=== PATIENT | male | born 1985 | race Caucasian/White ===

== ENCOUNTER 2016-10-21 21:15 | Emergency (ER) | payer SELFPAY ==
[2016-10-21 21:18] VITALS: BP 152/77; PULSE 93; RESP 16; TEMP 97.8; O2SAT 96
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
[2016-10-21] MEDS ORDERED: DICL75TA PO (23:18)
[2016-10-21] MEDS ORDERED: HYDR-3533 PO (23:18)
[2016-10-21] MEDS ORDERED: ACETAMINOPHEN/HYDROcodone 325 MG/5 MG TAB PO ONE (23:30)
== END 2016-10-22 00:10 | disposition home or self-care (01) ==
LOC: NEPD 21:15
DX: S92.511A Displaced fracture of proximal phalanx of right lesser toe(s), initial encounter for closed fracture (principal); S90.31XA Contusion of right foot, initial encounter; V27.4XXA Motorcycle driver injured in collision with fixed or stationary object in traffic accident, initial encounter
CPT/HCPCS: 73630; 99284; L3260

== ENCOUNTER 2017-03-19 11:03 | Emergency (ER) | payer SELFPAY ==
[~2017-03-19] VITALS: Ht 172.7 cm; Wt 91.0 kg
[~2017-03-19 11:03] MED LIST: DICL75TA PO; HYDR-3533 PO
[2017-03-19 11:04] VITALS: BP 156/87; PULSE 115; RESP 20; TEMP 99; O2SAT 98
[2017-03-19] MEDS ORDERED: ONDANSETRON HCL 4 MG/2 ML VIAL IV PUSH ONE (13:00)
[2017-03-19] MEDS ORDERED: MORPHINE SULFATE 2 MG/ML INJ IV PUSH ONE ×2 (13:00→14:15)
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
--- NOTE | 2017-03-19 14:59 | RADRPT ---
EXAM DATE/TIME: 03/19/2017 14:25 [facility] COMPARISON: ANKLE LEFT COMPLETE ([id number]), March 19, 2017, 13:25. INDICATIONS : Fell off a wall now having bilateral ankle pain, pain when patient tries to walk RADIATION DOSE: 16.72 CTDIvol (mGy) ; Combined studies MEDICAL HISTORY : None SURGICAL HISTORY : None. ENCOUNTER: Initial ACUITY: 1 day PAIN SCALE: 8/10 LOCATION: Right foot TECHNIQUE: Volumetric scanning of the foot was performed. Using automated exposure control and adjustment of th e mA and/or kV according to patient size, radiation dose was kept as low as reasonably achievable to obtain optimal diagnostic quality images. DICOM format image data is available electronically for re view and comparison. FINDINGS: BONES: There is a mildly comminuted fracture deformity involving the inferior lateral calcaneus several frac ture lines. There is minimal distraction of 1-3 mm. There is overlying soft tissue swelling. This ext ends into talar calcaneal joint. JOINTS: No evidence of joint narrowing or effusion. SOFT TISSUES: Muscles, tendons, and neurovascular structures are grossly unremarkable. No evidence of mass, organiz ed fluid collection, or foreign body. CONCLUSION: Mildly comminuted fracture deformity of the inferior lateral calcaneus. Marcial Govea MD on March 19, 2017 at 14:53 Board Certified Radiologist. This report was verified electronically.
--- NOTE | 2017-03-19 15:12 | RADRPT ---
EXAM DATE/TIME: 03/19/2017 14:27 [facility] COMPARISON: CT FOOT RIGHT W/O CONTRAST, March 19, 2017, 14:25. ANKLE LEFT COMPLETE ([id number]), March 19, 2017 , 13:25. INDICATIONS : Fell off a wall,now having bilateral ankle pain, trouble walking. Abnormal plain film exam. RADIATION DOSE: 16.72 CTDIvol (mGy) ; Combined studies MEDICAL HISTORY : None SURGICAL HISTORY : None. ENCOUNTER: Initial ACUITY: 1 day PAIN SCALE: 8/10 LOCATION: Left Foot TECHNIQUE: Volumetric scanning of the foot was performed. Using automated exposure control and adjustment of th e mA and/or kV according to patient size, radiation dose was kept as low as reasonably achievable to obtain optimal diagnostic quality images. DICOM format image data is available electronically for re view and comparison. FINDINGS: There is a comminuted fracture deformity involving the sustentaculum talus with multiple fractur e lines involving the inferior lateral talus. There is mild distraction of the fracture lines measuri ng up to 1-2 mm. This extends into the talar calcaneal joint. There is no significant angulation. The distal tibia and fibula are intact. There is questionable mild fracture deformity involving the ante rior lateral calcaneus. There is diffuse soft tissue swelling. CONCLUSION: 1. Mildly comminuted fracture deformity involving the sustentaculum fernanda. 2. Questionable subtle fracture involving the superior lateral calcaneus. Marcial Govea MD on March 19, 2017 at 15:04 Board Certified Radiologist. This report was verified electronically.
[2017-03-19 15:31] LABS: AUTOMATED NEUTROPHIL # 9.2 TH/MM3 (1.8-7.7); BASOPHIL % 0.4 % (0.0-2.0); EOSINOPHIL % 0.4 % (0.0-4.0); HEMATOCRIT 46.2 % (39.0-51.0); LYMPH % 15.9 % (9.0-44.0); MEAN CELL VOLUME 94.7 FL (80.0-100.0); MEAN CORPUSCULAR HEMOGLOBIN 32.9 PG (27.0-34.0); MEAN CORPUSCULAR HGB CONC 34.8 % (32.0-36.0); MEAN PLATELET VOLUME 9.5 FL (7.0-11.0); MONOCYTE # 1.1 TH/MM3 (0-0.9); NEUT % 74.3 % (16.0-70.0); PLATELET COUNT 215 TH/MM3 (150-450); RED BLOOD COUNT 4.87 MIL/MM3 (4.50-5.90); RED CELL DISTRIBUTION WIDTH 12.3 % (11.6-17.2); WHITE BLOOD COUNT 12.4 TH/MM3 (4.0-11.0)
[2017-03-19 15:39] LABS: BILIRUBIN, URINE NEG (NEG); BLOOD, URINE NEG (NEG); GLUCOSE,URINE NEG (NEG); KETONE, URINE NEG (NEG); NITRITE,URINE NEG (NEG); URINE COLOR YELLOW (YELLW/STRAW); URINE LEUKOCYTE ESTERASE NEG (NEG)
[2017-03-19 15:42] LABS: BICARBONATE 26.8 MEQ/L (21.0-32.0); CALCIUM 8.9 MG/DL (8.5-10.1); CREATININE 0.89 MG/DL (0.60-1.30)
[2017-03-19] MEDS ORDERED: PERC5TAB12 PO (16:15)
[2017-03-19] MEDS ORDERED: WHEEMIS3 (16:18)
[2017-03-19] MEDS ORDERED: HYDROmorphone HCL PF 2 MG/ML VIAL IV PUSH ONE (16:30)
== END 2017-03-19 19:54 | disposition home or self-care (01) ==
LOC: NEPD 11:03
DX: S92.001A Unspecified fracture of right calcaneus, initial encounter for closed fracture (principal); S92.102A Unspecified fracture of left talus, initial encounter for closed fracture; F17.210 Nicotine dependence, cigarettes, uncomplicated; W17.89XA Other fall from one level to another, initial encounter
CPT/HCPCS: 73610; 73700; 80048; 81001; 85025; 85610; 85730; 96374; 96375; 96376; 99285; J1170; J2270; J2405

== ENCOUNTER 2017-03-24 17:24 | Inpatient (IN) | payer SELFPAY ==
[~2017-03-24] VITALS: Ht 175.3 cm; Wt 95.5 kg
[~2017-03-24 17:24] MED LIST changes: +PERC5TAB12 PO; +WHEEMIS3
[2017-03-24 17:28] VITALS: BP 128/98; PULSE 110; RESP 20; TEMP 97.9; O2SAT 98
--- NOTE | 2017-03-24 19:02 | PD ---
HPI Chief Complaint: Injury Time Seen by Provider: 18:53 Travel History International Travel<30 days: No Contact w/Intl Traveler<30days: No Traveled to known affect area: No History of Present Illness HPI 31-year-old male with no significant medical history presents to emergency department for evaluation of bilateral lower extremity pain, greater on the left than the right. Patient was seen and evaluated here March 19 following an incident where he fell off of a wall that he was climbing on. He sustained bilateral lower extremity fractures. He was placed in splints and discharged to follow-up outpatient with orthopedic surgery. Patient states he has contacted the office and states that will be approximately 3 weeks until he is able to be seen. He reports worsening pain on the left, rates it a 10 out of 10. States that his pain medication is keeping the right side pain at bay however the left throbs no matter what he takes. Denies any new injury. Patient has been in a wheelchair and following discharge, nonweightbearing instructions as best as possible however he does pull himself around while he is in the wheelchair with his lower extremities. He does not recall any new injury. He denies removing his splints. Denies any alterations in sensation. He has no other symptoms to report. PFSH Past Medical History Medical History: Denies Significant Hx Social History Alcohol Use: Yes (twice a week ) Tobacco Use: Yes (1/2 pack ) Substance Use: No Allergies-Medications (Allergen,Severity, Reaction): Coded Allergies: No Known Allergies (Unverified Adverse Reaction, Unknown, 03/19/17) Reported Meds & Prescriptions Reported Meds & Active Scripts Active Percocet (Oxycodone-Acetaminophen) 5-325 mg Tab 1 Tab PO Q4H PRN Review of Systems Except as stated in HPI: all other systems reviewed are Neg Physical Exam Narrative GENERAL: Well-nourished male patient, in no acute distress. SKIN: Focused skin assessment warm/dry. Ecchymosis over the medial aspect of the left distal lower extreme extending to the posterior calf. HEAD: Atraumatic. Normocephalic. EYES: Pupils equal and round. No scleral icterus. No injection or drainage. ENT: No nasal bleeding or discharge. Mucous membranes pink and moist. NECK: Trachea midline. No JVD. CARDIOVASCULAR: Regular rate and rhythm. No murmur appreciated. RESPIRATORY: No accessory muscle use. Clear to auscultation. Breath sounds equal bilaterally. GASTROINTESTINAL: Abdomen soft, non-tender, nondistended. Hepatic and splenic margins not palpable. MUSCULOSKELETAL: No obvious deformities. No clubbing. No cyanosis. Moderate edema of the bilateral distal lower extremities. Distal pulses are palpable. Cap refill is within normal limits. Patient is able to wiggle his toes but states this exacerbates the pain mostly in his left ankle. Bilateral distal lower extremities are soft to palpation. NEUROLOGICAL: Awake and alert. No obvious cranial nerve deficits. Motor grossly within normal limits. Normal speech. PSYCHIATRIC: Appropriate mood and affect; insight and judgment normal. Data Data Last Documented VS Vital Signs Date Time Temp Pulse Resp B/P (MAP) Pulse Ox O2 Delivery O2 Flow Rate FiO2 03/24/17 19:36 82 15 130/82 (98) 98 Room Air 03/24/17 17:28 97.9 Orders Orders Ketorolac Inj (Toradol Inj) (03/24/17 19:15) Splint Or Brace Apply/Monitor (03/24/17 19:01) Iv Access Insert/Monitor (03/24/17 19:18) Npo After Midnight W/ Po Meds (03/25/17 Breakfast) Consult Orthopedic (03/24/17 ) Ketorolac Inj (Toradol Inj) (03/24/17 19:30) Sodium Chlor 0.9% 1000 Ml Inj (Ns 1000 M (03/24/17 19:30) Admit Order (Ed Use Only) (03/24/17 20:04) Morphine Inj (Morphine Inj) (03/24/17 20:15) MDM Medical Decision Making Medical Screen Exam Complete: Yes Emergency Medical Condition: Yes Medical Record Reviewed: Yes Differential Diagnosis Fracture versus contusion versus dislocation versus DVT versus compartment syndrome Narrative Course 31-year-old male presents to emergency department for evaluation of worsening pain of his lower extremities after sustaining bilateral calcaneal fractures on March 19. He has been unable to get into orthopedic surgery. Patient has a right mildly comminuted fracture of the inferior lateral calcaneus and a left mildly comminuted fracture of the sustentaculum alae with a questionable subtle fracture of the lateral calcaneus. The patient's splints are in poor condition so they are removed and replaced. His compartments remain soft and the distal extremity is are warm and well-perfused. I spoke with Dr. Argueta, orthopedic surgeon edi consultant. He recommends observation admission with a consult to Dr. Champion for him to evaluate him in the morning and determine plan of care at that time. I will keep him nothing by mouth after midnight in case surgical intervention is warranted at this time. Labs were completed on the nin and they will not be repeated at this time as he is a healthy young 31-year-old male. Plan is discussed with the patient. He is in agreement with this. I spoke with Dr. Rosario, patient meets inpatient criteria. He'll be admitted at this time. Diagnosis Primary Impression: Foot fracture, left Qualified Codes: S92.902D - Unspecified fracture of left foot, subsequent encounter for fracture with routine healing Additional Impression: Foot fracture, right Qualified Codes: S92.901D - Unspecified fracture of right foot, subsequent encounter for fracture with routine healing Admitting Information Admitting Physician Requests: Admit Condition: Stable Sharda Giron Mar 24, 2017 19:02
[2017-03-24] MEDS ORDERED: KETOROLAC TROMETHAMINE 60 MG/2 ML (IM) VIAL IM ONE (19:15)
[2017-03-24] MEDS ORDERED: SODIUM CHLOR 0.9% 1000 ML INJ 1,000 ML IV ONE (19:30)
[2017-03-24] MEDS ORDERED: KETOROLAC TROMETHAMINE 30 MG/ML (IVP) VIAL IV PUSH ONE (19:30)
[2017-03-24 19:36] VITALS: BP 130/82; PULSE 82; RESP 15; O2SAT 98
--- NOTE | 2017-03-24 20:05 | HHI.HP ---
[facility] Primary Care Physician No Primary Care Physician Admission Diagnosis bilateral lower extremity fractures Diagnoses: (1) Ankle fracture Diagnosis: Principal (2) Tobacco abuse Diagnosis: Principal Travel History International Travel<30 Days: No Contact w/Intl Traveler <30 Da: No Traveled to Known Affected Are: No History of Present Illness This is a 31-year-old male with no significant PMH of present the ER with complaints of bilateral ankle pain. 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 No head trauma or LOC. Ankle X-ray and CT LE w/ bilateral ankle fractures. Pt d/c'd home w/ instructions to follow w/ Dr. Rainey. States he called to make an appointment, however won't be seen for another 3wks. Persistent ankle pain, left worse than right, severe, 8-9/10, worse w/ movement/standing, non- radiating. Denies new injury. On arrival, BP 128/98, HR 110, O2 sat 98% on RA , Afebrile. Review of Systems Except as stated in HPI: all other systems reviewed are Neg ROS: 14 point review of systems otherwise negative. Past Family Social History Past Medical History PMH: None Past Surgical History PAST SURGICAL HISTORY: None Allergies: Coded Allergies: No Known Allergies (Unverified Adverse Reaction, Unknown, 03/19/17) Family History PAST FAMILY HISTORY: Reviewed. No h/o DM or CAD Social History PAST SOCIAL HISTORY: Occasional alcohol. Smokes 1/2ppd. Negative for drugs. Physical Exam Vital Signs Vital Signs Date Time Temp Pulse Resp B/P (MAP) Pulse Ox O2 Delivery O2 Flow Rate FiO2 03/24/17 19:36 82 15 130/82 (98) 98 Room Air 03/24/17 17:28 97.9 110 20 128/98 (108) 98 Room Air Physical Exam PE: GENERAL: Young male in no acute distress. HEENT: PERRLA, EOMI. No scleral icterus or conjunctival pallor. No lid lag or facial droop. CARDIOVASCULAR: Regular rate and rhythm. No obvious murmurs to auscultation. No chest tenderness to palpation. RESPIRATORY: No obvious rhonchi or wheezing. Clear to auscultation. Breath sounds equal bilaterally. GASTROINTESTINAL: Abdomen soft, non-tender, nondistended. BS normal. MUSCULOSKELETAL: Extremities without clubbing, cyanosis, + edema bilaterally. Decreased ROM of bilateral LE secondary to pain, left worse than right. Pulses intact. NEUROLOGICAL: Awake, alert and oriented x4. No focal neurologic deficits. Moving both upper and lower extremities spontaneously. Caprini VTE Risk Assessment Caprini VTE Risk Assessment: Mod/High Risk (score >= 2) Caprini Risk Assessment Model Point Value = 1 Point Value = 2 Point Value = 3 Point Value = 5 Age 41-60 Minor surgery BMI > 25 kg/m2 Swollen legs Varicose veins or History of unexplained or recurrent spontaneous Oral contraceptives or hormone replacement Sepsis (< 1 month) Serious lung disease, including pneumonia (< 1 month) Abnormal pulmonary function Acute myocardial infarction Congestive heart failure (< 1 month) History of inflammatory bowel disease Medical patient at bed rest Age 61-74 Arthroscopic surgery Major open surgery (> 45 min) Laparoscopic surgery (> 45 min) Malignancy Confined to bed (> 72 hours) Immobilizing plaster cast Central venous access Age >= 75 History of VTE Family history of VTE Factor V Leiden Prothrombin [id number] Lupus anticoagulant Anticardiolipin antibodies Elevated serum homocysteine Heparin-induced thrombocytopenia Other congenital or acquired thrombophilia Stroke (< 1 month) Elective arthroplasty Hip, pelvis, or leg fracture Acute spinal cord injury (< 1 month) Prophylaxis Regimen Total Risk Factor Score Risk Level Prophylaxis Regimen 0-1 Low Early ambulation 2 Moderate Order ONE of the following: *Sequential Compression Device (SCD) *Heparin 5000 units SQ BID 3-4 Higher Order ONE of the following medications: *Heparin 5000 units SQ TID *Enoxaparin/Lovenox 40 mg SQ daily (WT < 150 kg, CrCl > 30 mL/min) *Enoxaparin/Lovenox 30 mg SQ daily (WT < 150 kg, CrCl > 10-29 mL/min) *Enoxaparin/Lovenox 30 mg SQ BID (WT < 150 kg, CrCl > 30 mL/min) AND/OR *Sequential Compression Device (SCD) 5 or more Highest Order ONE of the following medications: *Heparin 5000 units SQ TID (Preferred with Epidurals) *Enoxaparin/Lovenox 40 mg SQ daily (WT < 150 kg, CrCl > 30 mL/min) *Enoxaparin/Lovenox 30 mg SQ daily (WT < 150 kg, CrCl > 10-29 mL/min) *Enoxaparin/Lovenox 30 mg SQ BID (WT < 150 kg, CrCl > 30 mL/min) AND *Sequential Compression Device (SCD) Assessment and Plan Problem List: (1) Ankle fracture ICD Code: S82.899A - Other fracture of unspecified lower leg, initial encounter for closed fracture (2) Tobacco abuse ICD Code: Z72.0 - Tobacco use Assessment and Plan A/P: 1. Ankle Fx: Bilateral. S/p fall from concrete wall, previously seen on , Ankle X-ray/CT w/ bilateral fractures, images reviewed by me. Dr. Argueta consulted, recommended onesimo w/ Dr. Isaac for surgical intervention. NPO, IVF, analgesics/antiemetics. Check pre-op labs. 2. Tobacco Abuse: Pt counselled. NicoDerm prn 3. DVT Prophylaxis: Anticoagulation post op 4. Social work for d/c planning as needed. 5. Case discussed at length w/ ER physician. Physician Certification 2 Midnight Certification Type: Admission for Inpatient Services Order for Inpatient Services The services are ordered in accordance with Medicare regulations or non- Medicare payer requirements, as applicable. In the case of services not specified as inpatient-only, they are appropriately provided as inpatient services in accordance with the 2-midnight benchmark. Estimated LOS (days): 2 days is the estimated time the patient will need to remain in the hospital, assuming treatment plan goals are met and no additional complications. Post-Hospital Plan: Not yet determined Inna Rosario MD Mar 24, 2017 20:05
[2017-03-24] MEDS ORDERED: MORPHINE SULFATE 2 MG/ML INJ IV PUSH ONE (20:15)
[2017-03-24] MEDS ORDERED: MAGNESIUM HYDROXIDE SUSP 30 ML CUP PO PRN (20:15)
[2017-03-24] MEDS ORDERED: LACTULOSE SYRUP 20 GM/30 ML CUP PO PRN (20:15)
[2017-03-24] MEDS ORDERED: BISACODYL 10 MG SUPP RECTAL PRN (20:15)
[2017-03-24] MEDS ORDERED: SODIUM CHLORIDE 0.9% FLUSH 10 ML FLUSH IV FLUSH PRN (20:15)
[2017-03-24] MEDS ORDERED: ACETAMINOPHEN 325 MG TAB PO PRN (20:15)
[2017-03-24] MEDS ORDERED: SENNOSIDES 8.6 MG TAB PO PRN (20:15)
[2017-03-24 20:25] VITALS: BP 140/81; PULSE 87; RESP 17; O2SAT 98
[2017-03-24] MEDS: SODIUM CHLOR 0.9% 1000 ML INJ 1,000 ML IV SCH (20:40)
[2017-03-24] MEDS ORDERED: SODIUM CHLORIDE 0.9% FLUSH 10 ML FLUSH IV FLUSH SCH (21:00)
[2017-03-24] MEDS: DOCUSATE SODIUM 50 MG/SENNA 8.6 MG TAB PO SCH (21:18)
[2017-03-24 21:32] VITALS: BP 156/79; PULSE 81; RESP 17; O2SAT 100
[2017-03-24 21:55] VITALS: BP 143/91; PULSE 79; RESP 18; TEMP 98; O2SAT 98
[2017-03-24] MEDS: ACETAMINOPHEN/HYDROcodone 325 MG/5 MG TAB PO PRN (22:22)
[2017-03-24] MEDS ORDERED: CHLORHEXIDINE GLUCONATE 2 % 1 PACK (2 CLOTHS) TOPICAL PRN (23:00)
[2017-03-24] MEDS ORDERED: POVIDONE IODINE 5% (ANTISEPSIS KIT) 4 APPLICATIONS EACH NARE PRN (23:00)
[2017-03-24] MEDS ORDERED: SODIUM CHLORID 0.9% 500 ML IV PRN (23:00)
[2017-03-24] MEDS ORDERED: LACTATED RINGER'S 1000 ML IV PRN (23:00)
[2017-03-24] MEDS: MORPHINE SULFATE 2 MG/ML INJ IV PUSH PRN (23:43)
[2017-03-25 00:05] VITALS: BP 149/88; PULSE 100; RESP 18; TEMP 98; O2SAT 98
[2017-03-25] MEDS: ACETAMINOPHEN/HYDROcodone 325 MG/5 MG TAB PO PRN ×2 (02:38→07:01)
[2017-03-25] MEDS: MORPHINE SULFATE 2 MG/ML INJ IV PUSH PRN ×2 (03:53→08:28)
[2017-03-25 04:05] VITALS: BP 148/89; PULSE 82; RESP 18; TEMP 97.8; O2SAT 99
[2017-03-25] MEDS: SODIUM CHLOR 0.9% 1000 ML INJ 1,000 ML IV SCH (06:03)
[2017-03-25 06:06] LABS: AUTOMATED NEUTROPHIL # 3.9 TH/MM3 (1.8-7.7); BASOPHIL % 0.3 % (0.0-2.0); EOSINOPHIL # 0.2 TH/MM3 (0-0.4); HEMATOCRIT 38.4 % (39.0-51.0); HEMOGLOBIN 13.3 GM/DL (13.0-17.0); LYMPH % 38.4 % (9.0-44.0); MEAN CELL VOLUME 96.2 FL (80.0-100.0); MEAN CORPUSCULAR HEMOGLOBIN 33.4 PG (27.0-34.0); MEAN CORPUSCULAR HGB CONC 34.7 % (32.0-36.0); MONO % 8.9 % (0.0-8.0); MONOCYTE # 0.7 TH/MM3 (0-0.9); NEUT % 50.4 % (16.0-70.0); PLATELET COUNT 206 TH/MM3 (150-450); RED CELL DISTRIBUTION WIDTH 12.2 % (11.6-17.2); WHITE BLOOD COUNT 7.8 TH/MM3 (4.0-11.0)
[2017-03-25 06:27] LABS: ALBUMIN 2.8 GM/DL (3.4-5.0); AST (GOT) 33 U/L (15-37); BICARBONATE 25.3 MEQ/L (21.0-32.0); BLOOD UREA NITROGEN 17 MG/DL (7-18); CALCIUM 8.1 MG/DL (8.5-10.1); CHLORIDE 106 MEQ/L (98-107); CREATININE 0.79 MG/DL (0.60-1.30); GLOMERULAR FILTRATION RATE 114 ML/MIN (>89); GLUCOSE,RANDOM 88 MG/DL (74-106); SODIUM (NA) 140 MEQ/L (136-145)
[2017-03-25 06:32] LABS: ALKALINE PHOSPHATASE 58 U/L (45-117); ALT (GPT) 74 U/L (12-78); TOTAL BILIRUBIN ADULT 0.4 MG/DL (0.2-1.0); TOTAL PROTEIN 6.2 GM/DL (6.4-8.2)
[2017-03-25] MEDS ORDERED: WHEEMIS3 (06:38)
[2017-03-25] MEDS ORDERED: OXYC-255 PO (06:38)
[2017-03-25 08:00] VITALS: BP 126/71; PULSE 80; RESP 16; TEMP 97.5; O2SAT 97
[2017-03-25] MEDS: DOCUSATE SODIUM 50 MG/SENNA 8.6 MG TAB PO SCH (09:59)
--- NOTE | 2017-03-25 10:33 | MB ---
cc: [facility] DATE OF ADMISSION 03/24/2017 DATE OF CONSULTATION 03/25/2017 REASON FOR CONSULTATION Bilateral talus fractures. CONSULTING PHYSICIAN Dr. Rosario RYAN Louise is a 31-year-old male. 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 He was walking along a wall that was approximately 10 or 12 feet high. He lost his balance and fell. He landed on his feet. He had immediate bilateral foot and ankle pain. The patient presented to the emergency room. X-rays and CT scan revealed mildly comminuted fractures of the lateral process of the talus. He is currently awake and on the orthopedic floor. His only complaint is of bilateral feet. He denies dizziness, syncope or loss of consciousness. PAST MEDICAL HISTORY ILLNESSES None. SURGERIES None. ALLERGIES None. MEDICATIONS Please see EMR for appropriate list of inpatient medications. SOCIAL HISTORY The patient drinks alcohol occasionally. He smokes 1/2-pack of cigarettes per day. He denies drug use. FAMILY HISTORY Noncontributory. REVIEW OF SYSTEMS The patient denies headache, visual changes, neck pain, chest pain, shortness of breath, abdominal pain, nausea, vomiting, fevers or chills, recent weight loss, numbness or tingling of extremities, bowel or bladder incontinence. He complains of bilateral foot pain. PHYSICAL EXAMINATION GENERAL: The patient is a well-developed, well-nourished 31-year-old male in no acute distress. He is awake and alert. He is alert and oriented x3. VITAL SIGNS: Temperature 97.5, pulse 80, respirations 16, blood pressure 126/71, O2 sat 97% on room air. HEAD: The patient is normocephalic. Pupils are equal. NECK: Soft, nontender. Trachea is midline. ABDOMEN: Soft, nontender, nondistended. EXTREMITIES: Examination of bilateral upper extremities reveals no pain with shoulder, elbow or wrist motion. He has intact sensation in all fingers. He has good capillary refill in all fingers. Skin is intact to both hands. Examination of the left leg reveals no pain with hip or knee motion. He has mild swelling of the ankle. He has good capillary refill in his toes. Sensation is intact to the left foot. He has some pain with subtalar motion. Examination of the right leg reveals no pain with hip or knee motion. He has mild swelling of the ankle. Skin is intact. He has intact sensation of all toes. He has good capillary refill in all toes. IMAGING STUDIES CT scan of right and left ankles were reviewed. CT scans reveal mildly comminuted bilateral talus fractures. The fractures mostly involve the lateral process of the talus. The subtalar joint appears to be consistently reduced. IMPRESSION 1. Bilateral talus lateral process fractures. 2. Fall off of wall approximately 10 feet high. PLAN The treatment options were discussed with the patient. We have discussed surgical and nonsurgical options. At this point the fractures are relatively well-aligned. The subtalar joints are also well-aligned. At this point I would recommend nonsurgical treatment. The patient will need to remain in splints. He will need to be non-weightbearing for 8-12 weeks while fractures are healing. The patient is in agreement with this plan. All questions were answered. A mid-level provider in my office, nurse practitioner or PA, may see this patient on a follow-up basis and continue to implement the objective of this plan including: Starting or adjusting medications, injections of muscle, tendon, bursa or joints, cast application, orthotic or brace application, physical therapy, further radiographic studies including x-ray, MRI, CT, ultrasounds or bone scan, vascular studies, neurologic studies, or other specialist consultations, and proceeding with surgical management as appropriate. MD MAKI Donohue/GERALD /10:02 AM /10:11 AM
[2017-03-25 12:00] VITALS: BP 121/65; PULSE 74; RESP 17; TEMP 97; O2SAT 95
[2017-03-25] MEDS ORDERED: ACETAMINOPHEN/HYDROcodone 325 MG/7.5 MG TAB PO PRN (13:00)
--- NOTE | 2017-03-25 13:22 | HHI.PR ---
Subjective Remarks Follow up for bilateral ankle fracture. Patient is currently doing well. Using his wheelchair. Wants to go home. Orthopedic surgery evaluated patient and no plans for any surgical intervention at this point. Objective Vitals Vital Signs Date Time Temp Pulse Resp B/P (MAP) Pulse Ox O2 Delivery O2 Flow Rate FiO2 03/25/17 12:00 97.0 74 17 121/65 (83) 95 03/25/17 10:52 16 03/25/17 08:00 97.5 80 16 126/71 (89) 97 03/25/17 04:05 97.8 82 18 148/89 (108) 99 03/25/17 00:05 98.0 100 18 149/88 (108) 98 03/24/17 21:55 98.0 79 18 143/91 (108) 98 03/24/17 21:32 81 17 156/79 (104) 100 Room Air 03/24/17 21:26 03/24/17 20:39 16 03/24/17 20:39 16 03/24/17 20:25 87 17 140/81 (100) 98 Room Air 03/24/17 19:36 82 15 130/82 (98) 98 Room Air 03/24/17 17:28 97.9 110 20 128/98 (108) 98 Room Air I/O 03/24/17 03/24/17 03/24/17 03/25/17 03/25/17 03/25/17 07:00 15:00 23:00 07:00 15:00 23:00 Intake Total 1000 ml 0 ml Output Total 300 ml Balance 1000 ml -300 ml Intake Oral 0 ml IV Total 1000 ml Output Urine Total 300 ml # Bowel Movements 0 Result Diagram: 03/25/17 0446 03/25/17 0446 Objective Remarks GENERAL: Alert, Oriented x 3, NAD. SKIN: Warm and dry. HEAD: Normocephalic. EYES: No scleral icterus. No injection or drainage. NECK: Supple, trachea midline. No JVD or lymphadenopathy. CARDIOVASCULAR: Regular rate and rhythm without murmurs, gallops, or rubs. RESPIRATORY: Breath sounds equal bilaterally. No accessory muscle use. GASTROINTESTINAL: Abdomen soft, non-tender, nondistended. MUSCULOSKELETAL: No cyanosis, or edema. Lower ext HARRISON wrapped. BACK: Nontender without obvious deformity. No CVA tenderness. A/P Problem List: (1) Ankle fracture ICD Code: S82.899A - Other fracture of unspecified lower leg, initial encounter for closed fracture (2) Tobacco abuse ICD Code: Z72.0 - Tobacco use Assessment and Plan This is a 31-year-old male with no significant PMH of present the ER with complaints of bilateral ankle pain. 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 No head trauma or LOC. Ankle X-ray and CT LE w/ bilateral ankle fractures. - Bilateral ankle fractures - Dr. Isaac recommended conservative treatment. - Non-weight bearing for 8-12 weeks. - D/C home on pain meds and outpatient follow up. - Tobacco abuse - patient has received counselling. Discharge patient to home Condition on discharge: Improved Regular Diet as tolerated Non-weight bearing for 8-12 weeks. Rx written: Oxycodone-Acetaminophen 5/325 Q4hrs PRN #60 Follow-up with primary care physician PRN, Orthopedic surgery within 1-2 weeks. Bandar Negro DO Mar 25, 2017 13:22
== END 2017-03-25 14:11 | disposition home or self-care (01) | DRG 561 ==
LOC: NEPD 17:24 → NEDA 20:05 → N06A 21:30
PROVIDERS: ADMIT Hospitalist; ATTEND Hospitalist
PROC: 2W0 Placement, Anatomical Regions, Change (ICD-10-PCS; principal; 2017-03-24)
PROC: 2W0SX1Z Change Splint on Right Foot (ICD-10-PCS; 2017-03-24)
DX: S92.001D Unspecified fracture of right calcaneus, subsequent encounter for fracture with routine healing (principal); S92.002D Unspecified fracture of left calcaneus, subsequent encounter for fracture with routine healing; W17.89XD Other fall from one level to another, subsequent encounter; Y93.89 Activity, other specified; F17.210 Nicotine dependence, cigarettes, uncomplicated
CPT/HCPCS: 80053; 85025; 96361; 96374; J1885; J2270; J7030